=== PATIENT | male | born 1990 | race Caucasian/White ===

== ENCOUNTER 2018-03-14 17:28 | Emergency (ER) | payer MEDICAID ==
[~2018-03-14] VITALS: Ht 180.3 cm; Wt 87.1 kg
[2018-03-14 17:35] VITALS: Ht 180.3 cm; Wt 87.1 kg
[2018-03-14 19:42] VITALS: BP 135/89
== END 2018-03-14 19:42 | disposition home or self-care (01) ==
LOC: ED 17:28
DX: K42.9 Umbilical hernia without obstruction or gangrene (principal)

== ENCOUNTER 2018-12-15 16:43 | Emergency (ER) | payer MEDICAID ==
[~2018-12-15] VITALS: Ht 180.3 cm; Wt 87.1 kg
[2018-12-15 16:49] VITALS: BP 133/61; Ht 180.3 cm; Wt 87.1 kg
== END 2018-12-15 17:38 | disposition home or self-care (01) ==
LOC: ED 16:43
DX: S41.112A Laceration without foreign body of left upper arm, initial encounter (principal); X58.XXXA Exposure to other specified factors, initial encounter; Y93.89 Activity, other specified; Y92.89 Other specified places as the place of occurrence of the external cause; Y99.8 Other external cause status
CPT/HCPCS: 90715